=== PATIENT | female | born 1960 | race African-American/Black ===

== ENCOUNTER 2018-05-04 01:10 | Emergency (ER) | payer OTHER ==
[~2018-05-04] VITALS: Ht 170.2 cm; Wt 108.2 kg
[2018-05-04] MEDS ORDERED: LOSA50TA64 PO (01:55)
[2018-05-04] MEDS ORDERED: PERCT10 PO (01:55)
[2018-05-04] MEDS ORDERED: LORA10TA7 PO (01:55)
[2018-05-04] MEDS ORDERED: HYDR25TA PO (01:55)
[2018-05-04 03:48] VITALS: BP 166/102
== END 2018-05-04 03:49 | disposition home or self-care (01) ==
LOC: EMS 01:10
DX: G89.29 Other chronic pain (principal); M25.561 Pain in right knee; M54.2 Cervicalgia; I10 Essential (primary) hypertension; F11.20 Opioid dependence, uncomplicated; Z98.51 Tubal ligation status; Z88.2 Allergy status to sulfonamides; Z88.1 Allergy status to other antibiotic agents